=== PATIENT | male | born 1970 | race African-American/Black ===

== ENCOUNTER 2024-05-24 01:34 | Emergency (ER) | payer MEDICAID ==
[~2024-05-24] VITALS: Ht 175.3 cm; Wt 81.0 kg
[2024-05-24 01:39] VITALS: BP 134/77; PULSE 67; RESP 16; TEMP 98.6; O2SAT 100
== END 2024-05-24 04:26 | disposition home or self-care (01) ==
LOC: ER 01:34
DX: F41.9 Anxiety disorder, unspecified (principal); I10 Essential (primary) hypertension
CPT/HCPCS: 99283